=== PATIENT | female | born 1940 | race African-American/Black ===

== ENCOUNTER 2023-09-23 11:53 | Inpatient (IN) | payer MEDICARE, OTHER ==
[~2023-09-23] VITALS: Ht 162.6 cm; Wt 67.1 kg
[2023-09-23] MEDS ORDERED: ASCO-340 PO (12:38)
[2023-09-23] MEDS ORDERED: OXYC5TAB3 PO (12:38)
[2023-09-23] MEDS ORDERED: CLOT15CR5 TP (12:38)
[2023-09-23] MEDS ORDERED: ASPI-1420 PO (12:38)
[2023-09-23] MEDS ORDERED: CALC-494 PO (12:38)
[2023-09-23] MEDS ORDERED: DULO20CA PO (12:38)
[2023-09-23] MEDS ORDERED: ACET-868 PO (12:38)
[2023-09-23] MEDS ORDERED: ATOR80TA PO (12:38)
[2023-09-23] MEDS ORDERED: SODI15OR5 PO (12:38)
[2023-09-23] MEDS ORDERED: CARV12.52 PO (12:38)
[2023-09-23] MEDS ORDERED: LEVO50TA8 PO (12:38)
[2023-09-23] MEDS ORDERED: FOLI1TAB34 PO (12:38)
[2023-09-23] MEDS ORDERED: PANT40TA2 PO (12:38)
[2023-09-23] MEDS ORDERED: DOCU100C36 PO (12:38)
[2023-09-23] MEDS ORDERED: GABA-532 PO (12:38)
[2023-09-23] MEDS ORDERED: ZINC220C6 PO (12:38)
[2023-09-23] MEDS ORDERED: CARB15DR EACHEYE (12:38)
[2023-09-23] MEDS ORDERED: BALS60OI TP (12:38)
[2023-09-23] MEDS ORDERED: CLON0.1T PO (12:38)
[2023-09-23] MEDS ORDERED: ALPR0.255 PO (12:38)
[2023-09-23] MEDS ORDERED: SEVE800T8 PO (12:38)
[2023-09-23] MEDS ORDERED: BIMA2.5D5 EACHEYE (12:38)
[2023-09-23] MEDS ORDERED: BISA10SU11 RC (12:38)
[2023-09-23 12:53] LABS: BASOPHILS % (AUTO) 0.2 % (0.0-2.0); EOSINOPHILS % (AUTO) 0.2 % (0.0-6.0); HEMATOCRIT 40 % (33-45); HEMOGLOBIN 11.4 g/dL (11.5-14.8); LYMPHOCYTES # (AUTO) 0.6 K/uL (0.8-4.8); LYMPHOCYTES % (AUTO) 10.5 % (20.0-44.0); MEAN CORPUSCULAR HEMOGLOBIN 28 PG (26.0-33.0); MEAN CORPUSCULAR HGB CONC 29 g/dl (31.0-36.0); MEAN CORPUSCULAR VOLUME 98 fL (82-100); MONOCYTES # (AUTO) 0.4 K/uL (0.1-1.30); MONOCYTES % (AUTO) 7.3 % (2.0-12.0); NEUTROPHILS # (AUTO) 4.5 K/uL (1.8-8.9); NEUTROPHILS % (AUTO) 81.8 % (43.0-81.0); PLATELET COUNT (AUTO) 106 K/uL (150-450); RED BLOOD CELL COUNT(AUTO) 4.03 MIL/uL (4.0-5.2); RED CELL DISTRIBUTION WIDTH 20.3 % (11.5-15.0); WHITE BLOOD COUNT (AUTO) 5.5 K/uL (4.3-11.0)
[2023-09-23 13:13] LABS: INR 1.17 (0.91-1.10); PARTIAL THROMBOPLASTIN TIME 30.6 SEC (24.3-34.3); PROTHROMBIN TIME 12.3 SECS (9.2-11.1)
[2023-09-23 13:28] LABS: ALANINE AMINOTRANSFERASE 15 U/L (12-78); ALBUMIN 3.6 g/dL (3.4-5.0); ALKALINE PHOSPHATASE 90 U/L (46-116); ASPARTATE AMINOTRANSFERASE 15 U/L (15-37); BILIRUBIN,DIRECT 0.2 mg/dL (0.0-0.2); BILIRUBIN,TOTAL 0.6 mg/dL (0.2-1.0); CARBON DIOXIDE 22 mmol/L (21-32); CHLORIDE 99 mmol/L (98-107); GLUCOSE 121 mg/dL (74-106); POTASSIUM 5.9 mmol/L (3.5-5.1); SODIUM SERUM 130 mmol/L (136-145); TOTAL PROTEIN, SERUM 7.8 g/dL (6.4-8.2); UREA NITROGEN, BLOOD 42 mg/dL (7-18)
[2023-09-23] MEDS ORDERED: LEVOFLOXACIN 750 MG /D5W 150ML PIGGYBACK IV ONE (13:30)
[2023-09-23] MEDS: LEVOFLOXACIN 750 MG /D5W 150ML 750 MG in PREMIX 1 EA IV ONE (13:30)
[2023-09-23 13:33] LABS: CREATININE 9.1 mg/dL (0.6-1.3)
[2023-09-23 13:38] LABS: CALCIUM, SERUM 8.2 mg/dL (8.5-10.1)
[2023-09-23 14:01] LABS: LACTIC ACID 0.6 mmol/L (0.4-2.0)
[2023-09-23] MEDS: VANCOMYCIN 1 GM in IV D5W 250 ML IV ONE (14:50)
[2023-09-23] MEDS ORDERED: ZOLPIDEM TARTRATE 5 MG TABLET PO PRN (16:00)
[2023-09-23] MEDS ORDERED: BISACODYL SUPP (10 MG) 10 MG/SUPP.RECT SUPP.RECT RC PRN (16:00)
[2023-09-23] MEDS ORDERED: ONDANSETRON HCL/PF 4 MG/2 ML VIAL IVP PRN (16:00)
[2023-09-23] MEDS ORDERED: DOCUSATE SODIUM 100 MG CAPSULE PO PRN (16:00)
[2023-09-23] MEDS ORDERED: CALCIUM CARBONATE 500 MG TAB.CHEW PO PRN (16:00)
[2023-09-23] MEDS ORDERED: ACETAMINOPHEN 325 MG TABLET PO PRN (16:00)
[2023-09-23] MEDS ORDERED: MAG HYDROX/AL HYDROX/SIMETH 30 ML UDC PO PRN (16:00)
[2023-09-23] MEDS: SODIUM POLYSTYRENE SULFONATE 15 G/60 ML BOTTLE PO ONE (16:00)
[2023-09-23] MEDS ORDERED: MAGNESIUM HYDROXIDE 30 ML UDC PO PRN (16:00)
[2023-09-23] MEDS ORDERED: VANCOMYCIN POST DIALYSIS 500MG IV PRN (16:30)
[2023-09-23] MEDS: CARVEDILOL 12.5 MG TABLET PO SCH (17:00)
[2023-09-23] MEDS: SEVELAMER CARBONATE 800 MG TABLET PO SCH (17:23)
[2023-09-23 20:00] VITALS: BP 93/60; TEMP 97.2; O2SAT 99
[2023-09-23] MEDS: GABAPENTIN 100 MG CAPSULE PO SCH (21:00)
[2023-09-23] MEDS: ATORVASTATIN 40 MG TABLET PO SCH (22:00)
[2023-09-23] MEDS: DULOXETINE HCL 20 MG CAPSULE.DR PO SCH (22:00)
[2023-09-23] MEDS: LATANOPROST EYE DROP 0.005% 2.5 ML BOTTLE OP SCH (22:37)
[2023-09-24] VITALS (52 sets, daily range): BP systolic 70–180; BP diastolic 14–148; TEMP 96–98.8; O2SAT 93–100
[2023-09-24] MEDS: LEVOTHYROXINE SODIUM 50 MCG TABLET PO SCH (07:30)
[2023-09-24] MEDS: PANTOPRAZOLE 40 MG TABLET.DR PO SCH (07:30)
[2023-09-24] MEDS ORDERED: PANTOPRAZOLE 40 MG TABLET.DR PO SCH (07:30)
[2023-09-24 07:32] LABS: BASOPHILS % (AUTO) 0.1 % (0.0-2.0); EOSINOPHILS % (AUTO) 0.1 % (0.0-6.0); HEMATOCRIT 37 % (33-45); LYMPHOCYTES # (AUTO) 0.4 K/uL (0.8-4.8); LYMPHOCYTES % (AUTO) 6.2 % (20.0-44.0); MEAN CORPUSCULAR HEMOGLOBIN 29 PG (26.0-33.0); MEAN CORPUSCULAR HGB CONC 30 g/dl (31.0-36.0); MEAN CORPUSCULAR VOLUME 95 fL (82-100); MONOCYTES # (AUTO) 0.6 K/uL (0.1-1.30); MONOCYTES % (AUTO) 8.5 % (2.0-12.0); NEUTROPHILS # (AUTO) 5.8 K/uL (1.8-8.9); NEUTROPHILS % (AUTO) 85.1 % (43.0-81.0); PLATELET COUNT (AUTO) 126 K/uL (150-450); RED BLOOD CELL COUNT(AUTO) 3.85 MIL/uL (4.0-5.2); WHITE BLOOD COUNT (AUTO) 6.8 K/uL (4.3-11.0)
[2023-09-24 07:58] LABS: CALCIUM, SERUM 8.2 mg/dL (8.5-10.1); CARBON DIOXIDE 24 mmol/L (21-32); GLUCOSE 104 mg/dL (74-106); MAGNESIUM 2.4 mg/dL (1.8-2.4); PHOSPHORUS 7.7 mg/dL (2.5-4.9); UREA NITROGEN, BLOOD 48 mg/dL (7-18)
[2023-09-24 08:06] LABS: CHOLESTEROL 104 mg/dL (<200); HDL CHOLESTEROL 40 mg/dL (40-60); LDL 52 mg/dL (0-99); THYROID STIMULATING HORMONE 1.512 uIU/mL (0.358-3.74); TRIGLYCERIDES 75 mg/dL (30-150)
[2023-09-24 08:07] LABS: CHLORIDE 98 mmol/L (98-107); SODIUM SERUM 133 mmol/L (136-145)
[2023-09-24] MEDS: ASPIRIN EC 81 MG TABLET.DR PO SCH (08:26)
[2023-09-24] MEDS: MULTIVITAMINS,THERAGRAN 1 UDTAB TABLET PO SCH (08:27)
[2023-09-24] MEDS: SODIUM POLYSTYRENE SULFONATE 15 G/60 ML BOTTLE PO SCH (08:27)
[2023-09-24] MEDS: ASCORBIC ACID 500 MG TABLET PO SCH (08:27)
[2023-09-24] MEDS: ZINC SULFATE 220 MG CAPSULE PO SCH (08:27)
[2023-09-24 08:47] LABS: CREATININE 9.5 mg/dL (0.6-1.3); POTASSIUM 6.5 mmol/L (3.5-5.1)
[2023-09-24] MEDS: HEPARIN SODIUM, PORCINE 5000 UNITS/1 ML VIAL SQ SCH (10:00)
[2023-09-24] MEDS: CLOTRIMAZOLE/BETAMETASONE DIPROPIONATE 15 GM TUBE TP SCH (10:28)
[2023-09-24 11:10] LABS: ABG BASE EXCESS -10.8 mmol/L; ABG PCO2 105.3 mmHg (35.0-45.0); ABG PH 6.958 (7.350-7.450); ABG PO2 85.2 mmHg (75.0-100.0); ABG TOTAL HEMOGLOBIN 12.7 G/dL (12.0-16.0); AaDO2 19.8 mmHg; COHb 1.3 % (0.5-1.5); MetHb 0.3 % (0.0-1.5); O2Hb 91.5 % (94.0-97.0); SITE, ABG Right Radial
[2023-09-24] MEDS: NOREPINEPHRINE 8 MG in IV D5W 242 ML IV PRN (12:48)
[2023-09-24] MEDS: VANCOMYCIN 1 GM in IV D5W 250 ML IV ONE (15:05)
[2023-09-24 17:13] LABS: ABG BASE EXCESS -5.3 mmol/L; ABG OXYGEN SATURATION 98.2 % (92.0-98.5); ABG PCO2 95.2 mmHg (35.0-45.0); ABG PH 7.068 (7.350-7.450); ABG PO2 132.6 mmHg (75.0-100.0); ABG TOTAL HEMOGLOBIN 12.5 G/dL (12.0-16.0); COHb 1.5 % (0.5-1.5); MetHb 0.3 % (0.0-1.5); O2Hb 96.4 % (94.0-97.0); SITE, ABG Right Radial
[2023-09-24] MEDS: PROPOFOL 100 ML IV PRN ×2 (18:03→20:34)
[2023-09-24] MEDS ORDERED: ETOMIDATE 2 MG/ML VIAL IV ONE (18:16)
[2023-09-25] VITALS (51 sets, daily range): BP systolic 96–168; BP diastolic 39–87; TEMP 97.7–102.3; O2SAT 100
[2023-09-25] MEDS: ACETAMINOPHEN 325 MG TABLET PO PRN (00:52)
[2023-09-25 04:20] LABS: BASOPHILS % (AUTO) 0.2 % (0.0-2.0); EOSINOPHILS % (AUTO) 0.2 % (0.0-6.0); HEMATOCRIT 32 % (33-45); HEMOGLOBIN 10.1 g/dL (11.5-14.8); LYMPHOCYTES # (AUTO) 0.8 K/uL (0.8-4.8); MEAN CORPUSCULAR HEMOGLOBIN 29 PG (26.0-33.0); MEAN CORPUSCULAR HGB CONC 32 g/dl (31.0-36.0); MEAN CORPUSCULAR VOLUME 90 fL (82-100); MONOCYTES # (AUTO) 0.9 K/uL (0.1-1.30); MONOCYTES % (AUTO) 13.2 % (2.0-12.0); NEUTROPHILS # (AUTO) 4.7 K/uL (1.8-8.9); NEUTROPHILS % (AUTO) 73.4 % (43.0-81.0); PLATELET COUNT (AUTO) 132 K/uL (150-450); RED BLOOD CELL COUNT(AUTO) 3.51 MIL/uL (4.0-5.2); WHITE BLOOD COUNT (AUTO) 6.4 K/uL (4.3-11.0)
[2023-09-25 04:46] LABS: ABG BASE EXCESS 0.6 mmol/L; ABG OXYGEN SATURATION 96.8 % (92.0-98.5); ABG PCO2 22.3 mmHg (35.0-45.0); ABG PO2 74.9 mmHg (75.0-100.0); ABG TOTAL HEMOGLOBIN 11.7 G/dL (12.0-16.0); AaDO2 184.7 mmHg; COHb 0.9 % (0.5-1.5); MetHb 0.1 % (0.0-1.5); O2Hb 95.8 % (94.0-97.0); SITE, ABG Left Radial
[2023-09-25 04:54] LABS: ALANINE AMINOTRANSFERASE 11 U/L (12-78); ALBUMIN 2.8 g/dL (3.4-5.0); ALKALINE PHOSPHATASE 75 U/L (46-116); ASPARTATE AMINOTRANSFERASE 16 U/L (15-37); BILIRUBIN,TOTAL 0.9 mg/dL (0.2-1.0); CARBON DIOXIDE 21 mmol/L (21-32); CHLORIDE 97 mmol/L (98-107); CREATININE 7.4 mg/dL (0.6-1.3); GLUCOSE 64 mg/dL (74-106); MAGNESIUM 1.9 mg/dL (1.8-2.4); PHOSPHORUS 2.3 mg/dL (2.5-4.9); SODIUM SERUM 133 mmol/L (136-145); TOTAL PROTEIN, SERUM 5.9 g/dL (6.4-8.2); UREA NITROGEN, BLOOD 35 mg/dL (7-18)
[2023-09-25] MEDS: CLONIDINE HCL 0.1 MG TABLET PO PRN (06:03)
[2023-09-25 11:55] LABS: ABG BASE EXCESS -3.3 mmol/L; ABG OXYGEN SATURATION 94.9 % (92.0-98.5); ABG PCO2 36.3 mmHg (35.0-45.0); ABG PH 7.384 (7.350-7.450); ABG PO2 76.5 mmHg (75.0-100.0); ABG TOTAL HEMOGLOBIN 11.7 G/dL (12.0-16.0); AaDO2 94.8 mmHg; COHb 0.8 % (0.5-1.5); MetHb 0.1 % (0.0-1.5); PEEP,BG 5 cm H2O; SITE, ABG Right Radial; VT, ABG 425 mL
[2023-09-25] MEDS ORDERED: LEVOFLOXACIN 500 MG /D5W 100ML 500 MG in PREMIX 1 EA IV SCH (13:00)
[2023-09-25] MEDS: POLYVINYL ALCOHOL 15 ML BOTTLE EACHEYE PRN (14:45)
[2023-09-25] MEDS: Z GUARD REMEDY 4 OZ OINT TP PRN (14:45)
[2023-09-25] MEDS: CEFEPIME 1 GM in IV D5W 50 ML IV SCH (14:45)
[2023-09-25] MEDS: NITROGLYCERIN 30 GM TUBE TP SCH (14:47)
[2023-09-25] MEDS: NEPRO 1,000 ML BOTTLE GT PRN (16:52)
[2023-09-25] MEDS: NEUTRA PHOS 1 POWD.PACKET PO ONE (17:00)
[2023-09-26] VITALS (73 sets, daily range): BP systolic 78–187; BP diastolic 29–121; TEMP 97–98.5; O2SAT 88–100
[2023-09-26 08:38] LABS: BASOPHILS % (AUTO) 0.4 % (0.0-2.0); EOSINOPHILS # (AUTO) 0.1 K/uL (0.0-0.7); EOSINOPHILS % (AUTO) 1.3 % (0.0-6.0); HEMATOCRIT 32 % (33-45); HEMOGLOBIN 10.2 g/dL (11.5-14.8); LYMPHOCYTES # (AUTO) 0.6 K/uL (0.8-4.8); LYMPHOCYTES % (AUTO) 8.5 % (20.0-44.0); MEAN CORPUSCULAR HEMOGLOBIN 29 PG (26.0-33.0); MEAN CORPUSCULAR HGB CONC 32 g/dl (31.0-36.0); MEAN CORPUSCULAR VOLUME 90 fL (82-100); MONOCYTES # (AUTO) 0.8 K/uL (0.1-1.30); MONOCYTES % (AUTO) 10.9 % (2.0-12.0); NEUTROPHILS # (AUTO) 5.9 K/uL (1.8-8.9); NEUTROPHILS % (AUTO) 78.9 % (43.0-81.0); PLATELET COUNT (AUTO) 120 K/uL (150-450); RED BLOOD CELL COUNT(AUTO) 3.56 MIL/uL (4.0-5.2); RED CELL DISTRIBUTION WIDTH 19.4 % (11.5-15.0); WHITE BLOOD COUNT (AUTO) 7.5 K/uL (4.3-11.0)
[2023-09-26 08:52] LABS: ALANINE AMINOTRANSFERASE 11 U/L (12-78); ALBUMIN 2.5 g/dL (3.4-5.0); ALKALINE PHOSPHATASE 74 U/L (46-116); ASPARTATE AMINOTRANSFERASE 17 U/L (15-37); BILIRUBIN,TOTAL 0.7 mg/dL (0.2-1.0); CALCIUM, SERUM 7.9 mg/dL (8.5-10.1); CARBON DIOXIDE 25 mmol/L (21-32); CHLORIDE 96 mmol/L (98-107); CREATININE 5.6 mg/dL (0.6-1.3); GLUCOSE 101 mg/dL (74-106); MAGNESIUM 1.9 mg/dL (1.8-2.4); PHOSPHORUS 4.1 mg/dL (2.5-4.9); POTASSIUM 4.2 mmol/L (3.5-5.1); SODIUM SERUM 133 mmol/L (136-145); TOTAL PROTEIN, SERUM 5.8 g/dL (6.4-8.2); UREA NITROGEN, BLOOD 27 mg/dL (7-18)
[2023-09-26 09:49] LABS: ABG BASE EXCESS -0.8 mmol/L; ABG OXYGEN SATURATION 96.1 % (92.0-98.5); ABG PCO2 31.6 mmHg (35.0-45.0); ABG PH 7.465 (7.350-7.450); ABG PO2 81.2 mmHg (75.0-100.0); ABG TOTAL HEMOGLOBIN 11.9 G/dL (12.0-16.0); AaDO2 95.6 mmHg; COHb 1.1 % (0.5-1.5); MetHb 0.1 % (0.0-1.5); O2Hb 94.9 % (94.0-97.0); PEEP,BG 5 cm H2O; SITE, ABG Left Radial; VENT MODE, BG simv 4; VT, ABG 425 mL
[2023-09-26 11:07] LABS: HEPATITIS B SURFACE AB Non Reactive (.)
[2023-09-27] VITALS (63 sets, daily range): BP systolic 96–169; BP diastolic 37–99; TEMP 97.7–98.4; O2SAT 90–100
[2023-09-27 04:52] LABS: BASOPHILS % (AUTO) 0.4 % (0.0-2.0); EOSINOPHILS # (AUTO) 0.1 K/uL (0.0-0.7); EOSINOPHILS % (AUTO) 1.5 % (0.0-6.0); HEMATOCRIT 32 % (33-45); HEMOGLOBIN 10.2 g/dL (11.5-14.8); LYMPHOCYTES # (AUTO) 0.8 K/uL (0.8-4.8); LYMPHOCYTES % (AUTO) 9.2 % (20.0-44.0); MEAN CORPUSCULAR HEMOGLOBIN 28 PG (26.0-33.0); MEAN CORPUSCULAR HGB CONC 32 g/dl (31.0-36.0); MEAN CORPUSCULAR VOLUME 89 fL (82-100); MONOCYTES # (AUTO) 1.3 K/uL (0.1-1.30); MONOCYTES % (AUTO) 14.9 % (2.0-12.0); NEUTROPHILS # (AUTO) 6.4 K/uL (1.8-8.9); PLATELET COUNT (AUTO) 117 K/uL (150-450); RED CELL DISTRIBUTION WIDTH 19.7 % (11.5-15.0); WHITE BLOOD COUNT (AUTO) 8.7 K/uL (4.3-11.0)
[2023-09-27 05:44] LABS: ALBUMIN 1.5 g/dL (3.4-5.0); BILIRUBIN,TOTAL 0.4 mg/dL (0.2-1.0); CALCIUM, SERUM 8.2 mg/dL (8.5-10.1); CREATININE 0.8 mg/dL (0.6-1.3); MAGNESIUM 1.8 mg/dL (1.8-2.4); PHOSPHORUS 2.8 mg/dL (2.5-4.9); POTASSIUM 3.4 mmol/L (3.5-5.1); TOTAL PROTEIN, SERUM 4.7 g/dL (6.4-8.2)
[2023-09-27] MEDS: VANCOMYCIN 500 MG in IV D5W 100 ML IV PRN (08:03)
[2023-09-27] MEDS ORDERED: POTASSIUM CHLORIDE 20 MEQ TAB.PRT.SR PO SCH (09:00)
[2023-09-27] MEDS: POTASSIUM CHLORIDE 20 MEQ TAB.PRT.SR PO SCH ×2 (12:39→13:00)
[2023-09-28] VITALS (8 sets, daily range): BP systolic 100–123; BP diastolic 53–66; TEMP 97.4–99.1; O2SAT 97–100
[2023-09-28 06:26] LABS: BASOPHILS % (AUTO) 0.2 % (0.0-2.0); EOSINOPHILS # (AUTO) 0.2 K/uL (0.0-0.7); EOSINOPHILS % (AUTO) 3.1 % (0.0-6.0); HEMATOCRIT 30 % (33-45); HEMOGLOBIN 9.5 g/dL (11.5-14.8); LYMPHOCYTES # (AUTO) 0.7 K/uL (0.8-4.8); LYMPHOCYTES % (AUTO) 10.7 % (20.0-44.0); MEAN CORPUSCULAR HEMOGLOBIN 29 PG (26.0-33.0); MEAN CORPUSCULAR HGB CONC 32 g/dl (31.0-36.0); MEAN CORPUSCULAR VOLUME 91 fL (82-100); MONOCYTES # (AUTO) 1.1 K/uL (0.1-1.30); MONOCYTES % (AUTO) 15.9 % (2.0-12.0); NEUTROPHILS # (AUTO) 4.7 K/uL (1.8-8.9); NEUTROPHILS % (AUTO) 70.1 % (43.0-81.0); PLATELET COUNT (AUTO) 102 K/uL (150-450); RED BLOOD CELL COUNT(AUTO) 3.32 MIL/uL (4.0-5.2); RED CELL DISTRIBUTION WIDTH 19.4 % (11.5-15.0); WHITE BLOOD COUNT (AUTO) 6.6 K/uL (4.3-11.0)
[2023-09-28 06:38] LABS: ALANINE AMINOTRANSFERASE 10 U/L (12-78); ALBUMIN 2.4 g/dL (3.4-5.0); ALKALINE PHOSPHATASE 77 U/L (46-116); ASPARTATE AMINOTRANSFERASE 16 U/L (15-37); BILIRUBIN,TOTAL 0.6 mg/dL (0.2-1.0); CALCIUM, SERUM 7.8 mg/dL (8.5-10.1); CARBON DIOXIDE 24 mmol/L (21-32); CHLORIDE 97 mmol/L (98-107); GLUCOSE 106 mg/dL (74-106); PHOSPHORUS 5.8 mg/dL (2.5-4.9); POTASSIUM 4.4 mmol/L (3.5-5.1); SODIUM SERUM 132 mmol/L (136-145); TOTAL PROTEIN, SERUM 5.9 g/dL (6.4-8.2); UREA NITROGEN, BLOOD 36 mg/dL (7-18)
[2023-09-28] MEDS: ALBUMIN 25% 25 GM in PREMIX 1 EA IV PRN (13:12)
[2023-09-29] VITALS: BP 131/64; TEMP 98.6; O2SAT 98
[2023-09-29 04:00] VITALS: BP 128/59; TEMP 97.9; O2SAT 100
[2023-09-29 08:00] VITALS: BP 138/56; TEMP 97.5; O2SAT 96
[2023-09-29 09:21] LABS: BASOPHILS % (AUTO) 0.2 % (0.0-2.0); EOSINOPHILS # (AUTO) 0.2 K/uL (0.0-0.7); EOSINOPHILS % (AUTO) 3.4 % (0.0-6.0); HEMATOCRIT 32 % (33-45); HEMOGLOBIN 9.7 g/dL (11.5-14.8); LYMPHOCYTES # (AUTO) 0.8 K/uL (0.8-4.8); LYMPHOCYTES % (AUTO) 12.8 % (20.0-44.0); MEAN CORPUSCULAR HEMOGLOBIN 29 PG (26.0-33.0); MEAN CORPUSCULAR HGB CONC 31 g/dl (31.0-36.0); MEAN CORPUSCULAR VOLUME 94 fL (82-100); MONOCYTES # (AUTO) 0.8 K/uL (0.1-1.30); MONOCYTES % (AUTO) 13.9 % (2.0-12.0); NEUTROPHILS # (AUTO) 4.1 K/uL (1.8-8.9); NEUTROPHILS % (AUTO) 69.7 % (43.0-81.0); PLATELET COUNT (AUTO) 84 K/uL (150-450); RED BLOOD CELL COUNT(AUTO) 3.39 MIL/uL (4.0-5.2); RED CELL DISTRIBUTION WIDTH 20.1 % (11.5-15.0); WHITE BLOOD COUNT (AUTO) 5.9 K/uL (4.3-11.0)
[2023-09-29 09:42] LABS: ALANINE AMINOTRANSFERASE 16 U/L (12-78); ALBUMIN 2.6 g/dL (3.4-5.0); ALKALINE PHOSPHATASE 69 U/L (46-116); ASPARTATE AMINOTRANSFERASE 22 U/L (15-37); BILIRUBIN,TOTAL 0.6 mg/dL (0.2-1.0); CALCIUM, SERUM 8.2 mg/dL (8.5-10.1); CARBON DIOXIDE 30 mmol/L (21-32); CHLORIDE 92 mmol/L (98-107); CREATININE 4.7 mg/dL (0.6-1.3); GLUCOSE 113 mg/dL (74-106); MAGNESIUM 2.1 mg/dL (1.8-2.4); PHOSPHORUS 4.1 mg/dL (2.5-4.9); POTASSIUM 4.1 mmol/L (3.5-5.1); SODIUM SERUM 130 mmol/L (136-145); TOTAL PROTEIN, SERUM 6.2 g/dL (6.4-8.2); UREA NITROGEN, BLOOD 26 mg/dL (7-18)
[2023-09-29 12:00] VITALS: BP 94/56; TEMP 98.2; O2SAT 99
[2023-09-29 12:57] LABS: BASOPHILS % (MANUAL) 0 % (0.0-2.0); EOSINOPHILS % (MANUAL) 3 % (0-4); LYMPHOCYTES % (MANUAL) 11 % (16-48); MONOCYTES % (MANUAL) 15 % (0-11.0); NEUTROPHILS % (MANUAL) 71 (42-76); PLATELET ESTIMATE DECREASED
[2023-09-29 12:58] LABS: ANISOCYTOSIS 1+; HYPOCHROMASIA 1+; OVALOCYTES 1+
[2023-09-29 16:00] VITALS: BP 117/55; TEMP 98.2; O2SAT 99
[2023-09-29 16:34] VITALS: BP 117/55
[2023-10-01] MEDS ORDERED: MUPIROCIN OINT 2% 22 GM TUBE NS SCH (21:00)
== END 2023-09-29 18:23 | DRG 917 ==
LOC: ER 11:55 → TELE-TD 14:09 → TELE1 16:26 → ICU 09-24 11:29 → TELE1 09-27 17:28 → MEDSG1 09-29 13:12
PROVIDERS: ADMIT Student in an Organized Health Care Education/Training Program
PROC: 5A1945Z Respiratory Ventilation, 24-96 Consecutive Hours (ICD-10-PCS; principal; 2023-09-24)
PROC: 5A09357 Assistance with Respiratory Ventilation, Less than 24 Consecutive Hours, Continuous Positive Airway Pressure (ICD-10-PCS; 2023-09-24)
PROC: 5A1D70Z Performance of Urinary Filtration, Intermittent, Less than 6 Hours Per Day (ICD-10-PCS; 2023-09-24)
PROC: 05H933Z Insertion of Infusion Device into Right Brachial Vein, Percutaneous Approach (ICD-10-PCS; 2023-09-24)
PROC: 0BH17EZ Insertion of Endotracheal Airway into Trachea, Via Natural or Artificial Opening (ICD-10-PCS; 2023-09-24)
DX: T50.901A Poisoning by unspecified drugs, medicaments and biological substances, accidental (unintentional), initial encounter (principal); A41.9 Sepsis, unspecified organism; G92.8 Other toxic encephalopathy; J15.69 Pneumonia due to other Gram-negative bacteria; I21.A1 Myocardial infarction type 2; J96.01 Acute respiratory failure with hypoxia; J69.0 Pneumonitis due to inhalation of food and vomit; N18.6 End stage renal disease; J96.02 Acute respiratory failure with hypercapnia; I13.2 Hypertensive heart and chronic kidney disease with heart failure and with stage 5 chronic kidney disease, or end stage renal disease; J44.0 Chronic obstructive pulmonary disease with (acute) lower respiratory infection; E87.1 Hypo-osmolality and hyponatremia; Y92.129 Unspecified place in nursing home as the place of occurrence of the external cause; I25.10 Atherosclerotic heart disease of native coronary artery without angina pectoris; J44.9 Chronic obstructive pulmonary disease, unspecified; I50.9 Heart failure, unspecified; L89.156 Pressure-induced deep tissue damage of sacral region; Z79.890 Hormone replacement therapy; Z79.82 Long term (current) use of aspirin; Z79.899 Other long term (current) drug therapy; K21.9 Gastro-esophageal reflux disease without esophagitis; Y95 Nosocomial condition; Z99.2 Dependence on renal dialysis; E03.9 Hypothyroidism, unspecified; D63.1 Anemia in chronic kidney disease; N25.0 Renal osteodystrophy; Z22.322 Carrier or suspected carrier of Methicillin resistant Staphylococcus aureus; E78.5 Hyperlipidemia, unspecified; D69.6 Thrombocytopenia, unspecified; E87.5 Hyperkalemia; E87.6 Hypokalemia; G89.4 Chronic pain syndrome; Z88.0 Allergy status to penicillin
CPT/HCPCS: 31720; 36410; 36415; 36600; 71045-TC; 71250-TC; 80048-TC; 80053-TC; 80061-TC; 80076-TC; 80202-TC; 82803-TC; 82962-TC; 83605-TC; 83735-TC; 84100-TC; 84443-TC; 84478-TC; 84484-TC; 85025-TC; 85730-TC; 86706; 87040-TC; 87081-TC; 87340; 90935-TC; 93307-TC; 94003-TC; 94761-TC; 94799-TC; 97112-TC; 97530-TC; A4216; A4223; G0378; J0330; J0692; J1644; J1956; J3370; J3490; J7030; J7042; J7050; J7060; P9047

== ENCOUNTER 2024-01-28 15:20 | Inpatient (IN) | payer MEDICARE, OTHER ==
[~2024-01-28] VITALS: Ht 165.1 cm; Wt 62.6 kg
[~2024-01-28 15:20] MED LIST: ACET-868 PO; ALPR0.255 PO; ASCO-340 PO; ASPI-1420 PO; ATOR80TA PO; BALS60OI TP; BIMA2.5D5 EACHEYE; BISA10SU11 RC; CALC-494 PO; CARB15DR EACHEYE; CARV12.52 PO; CLON0.1T PO; CLOT15CR5 TP; DOCU100C36 PO; DULO20CA PO; FOLI1TAB34 PO; GABA-532 PO; LEVO50TA8 PO; OXYC5TAB3 PO; PANT40TA2 PO; SEVE800T8 PO; SODI15OR5 PO; ZINC220C6 PO
[2024-01-28 15:52] LABS: BASOPHILS % (AUTO) 0.8 % (0.0-2.0); EOSINOPHILS # (AUTO) 0.2 K/uL (0.0-0.7); EOSINOPHILS % (AUTO) 4.9 % (0.0-6.0); HEMATOCRIT 34 % (33-45); HEMOGLOBIN 10.4 g/dL (11.5-14.8); LYMPHOCYTES # (AUTO) 0.7 K/uL (0.8-4.8); LYMPHOCYTES % (AUTO) 19.8 % (20.0-44.0); MEAN CORPUSCULAR HEMOGLOBIN 29 PG (26.0-33.0); MEAN CORPUSCULAR HGB CONC 31 g/dl (31.0-36.0); MEAN CORPUSCULAR VOLUME 95 fL (82-100); MONOCYTES # (AUTO) 0.5 K/uL (0.1-1.30); MONOCYTES % (AUTO) 12.3 % (2.0-12.0); NEUTROPHILS # (AUTO) 2.3 K/uL (1.8-8.9); NEUTROPHILS % (AUTO) 62.2 % (43.0-81.0); PLATELET COUNT (AUTO) 78 K/uL (150-450); RED BLOOD CELL COUNT(AUTO) 3.54 MIL/uL (4.0-5.2); RED CELL DISTRIBUTION WIDTH 19.6 % (11.5-15.0); WHITE BLOOD COUNT (AUTO) 3.7 K/uL (4.3-11.0)
[2024-01-28 16:00] LABS: CALCIUM, SERUM 8.5 mg/dL (8.5-10.1); CARBON DIOXIDE 23 mmol/L (21-32); CHLORIDE 103 mmol/L (98-107); CREATININE 6.4 mg/dL (0.6-1.3); GLUCOSE 93 mg/dL (74-106); POTASSIUM 5.1 mmol/L (3.5-5.1); SODIUM SERUM 133 mmol/L (136-145); UREA NITROGEN, BLOOD 48 mg/dL (7-18)
[2024-01-28] MEDS ORDERED: Magnesium 1GM/D5W 100ML PREMIX 100 ML IV ONE (16:08)
[2024-01-28] MEDS ORDERED: methylPREDNISolone SOD SUCC 125 MG/2ML VIAL ONE (16:08)
[2024-01-28 16:12] LABS: ALANINE AMINOTRANSFERASE 20 U/L (12-78); ALBUMIN 3.3 g/dL (3.4-5.0); ALKALINE PHOSPHATASE 84 U/L (46-116); ASPARTATE AMINOTRANSFERASE 14 U/L (15-37); BILIRUBIN,DIRECT 0.2 mg/dL (0.0-0.2); BILIRUBIN,TOTAL 0.5 mg/dL (0.2-1.0); NT-PRO BNP 19436 pg/mL (0-125)
[2024-01-28] MEDS ORDERED: ALBUTEROL FS 2.5 MG/3 ML VIAL.NEB ONE (16:13)
[2024-01-28] MEDS ORDERED: IPRATROPIUM NEB FS 0.5 MG/2.5 ML AMPUL.NEB ONE (16:13)
[2024-01-28] MEDS: Magnesium 1GM/D5W 100ML PREMIX 200 ML IV ONE (16:15)
[2024-01-28] MEDS: methylPREDNISolone SOD SUCC 125 MG/2ML VIAL IV ONE (16:15)
[2024-01-28 16:26] LABS: EOSINOPHILS % (MANUAL) 9 % (0-4); LYMPHOCYTES % (MANUAL) 20 % (16-48); MONOCYTES % (MANUAL) 11 % (0-11.0); NEUTROPHILS % (MANUAL) 60 (42-76)
[2024-01-28] MEDS: IPRATROPIUM NEB FS 0.5 MG/2.5 ML AMPUL.NEB NEB ONE (16:26)
[2024-01-28] MEDS: ALBUTEROL FS 2.5 MG/3 ML VIAL.NEB CONTNEB ONE (16:26)
[2024-01-28 16:27] LABS: ANISOCYTOSIS 1+; PLATELET ESTIMATE DECREASED
[2024-01-28] MEDS ORDERED: DICL100G34 TP (17:09)
[2024-01-28] MEDS ORDERED: AMIN30LI25 PO (17:09)
[2024-01-28] MEDS ORDERED: POLY17PO4 PO (17:09)
[2024-01-28] MEDS ORDERED: ZINC56.713 TP (17:09)
[2024-01-28] MEDS ORDERED: BUPR150F3 BC (17:09)
[2024-01-28] MEDS ORDERED: TRAM50TA PO (17:09)
[2024-01-28] MEDS ORDERED: NITR1PAT67 TD (17:09)
[2024-01-28] MEDS ORDERED: LATA2.5D15 EACHEYE (17:09)
[2024-01-28] MEDS ORDERED: APIX5TAB PO (17:09)
[2024-01-28] MEDS: FUROSEMIDE 40 MG/4 ML VIAL IV ONE (18:02)
[2024-01-28] MEDS ORDERED: FUROSEMIDE 40 MG/4 ML VIAL ONE (18:04)
[2024-01-28] MEDS ORDERED: Z GUARD REMEDY 4 OZ OINT TP PRN (19:00)
[2024-01-28] MEDS ORDERED: BISACODYL SUPP (10 MG) 10 MG/SUPP.RECT SUPP.RECT RC PRN (19:00)
[2024-01-28] MEDS ORDERED: ONDANSETRON HCL/PF 4 MG/2 ML VIAL IVP PRN (19:00)
[2024-01-28 19:55] VITALS: BP 113/54; O2SAT 96
[2024-01-28 20:00] VITALS: BP 148/60; TEMP 97.9; O2SAT 97; O2SAT 99
[2024-01-28] MEDS: IPRATROPIUM NEB FS 0.5 MG/2.5 ML AMPUL.NEB NEB SCH (20:14)
[2024-01-28] MEDS: ALBUTEROL FS 2.5 MG/0.5 ML VIAL.NEB NEB SCH (20:14)
[2024-01-28 21:00] VITALS: BP 123/84; O2SAT 98
[2024-01-28] MEDS: CEFTRIAXONE 1 G in IV D5W 50 ML IV SCH (21:29)
[2024-01-28] MEDS: LATANOPROST EYE DROP 0.005% 2.5 ML BOTTLE EACHEYE SCH (21:32)
[2024-01-28] MEDS: CALCIUM CARBONATE 500 MG TAB.CHEW PO SCH (21:32)
[2024-01-28] MEDS: GABAPENTIN 100 MG CAPSULE PO SCH (21:32)
[2024-01-28] MEDS: methylPREDNISolone SOD SUCC 40 MG/ML VIAL IV SCH (21:32)
[2024-01-28] MEDS: ATORVASTATIN 40 MG TABLET PO SCH (21:32)
[2024-01-28 22:00] VITALS: BP 139/38; O2SAT 99
[2024-01-28 23:00] VITALS: BP 144/105; O2SAT 99
[2024-01-29] VITALS (42 sets, daily range): BP systolic 104–177; BP diastolic 39–110; TEMP 97.6–98.3; O2SAT 87–100
[2024-01-29] MEDS: IV NS 0.9% 250 ML IV PRN (02:44)
[2024-01-29 05:11] LABS: BASOPHILS % (AUTO) 0.3 % (0.0-2.0); EOSINOPHILS % (AUTO) 0.1 % (0.0-6.0); HEMATOCRIT 35 % (33-45); HEMOGLOBIN 11.4 g/dL (11.5-14.8); LYMPHOCYTES # (AUTO) 0.3 K/uL (0.8-4.8); LYMPHOCYTES % (AUTO) 10.8 % (20.0-44.0); MEAN CORPUSCULAR HEMOGLOBIN 31 PG (26.0-33.0); MEAN CORPUSCULAR HGB CONC 33 g/dl (31.0-36.0); MEAN CORPUSCULAR VOLUME 94 fL (82-100); MONOCYTES # (AUTO) 0.1 K/uL (0.1-1.30); MONOCYTES % (AUTO) 1.8 % (2.0-12.0); NEUTROPHILS # (AUTO) 2.5 K/uL (1.8-8.9); PLATELET COUNT (AUTO) 86 K/uL (150-450); RED BLOOD CELL COUNT(AUTO) 3.73 MIL/uL (4.0-5.2); RED CELL DISTRIBUTION WIDTH 19.1 % (11.5-15.0); WHITE BLOOD COUNT (AUTO) 2.8 K/uL (4.3-11.0)
[2024-01-29 05:12] LABS: CALCIUM, SERUM 8.1 mg/dL (8.5-10.1); CARBON DIOXIDE 31 mmol/L (21-32); CHLORIDE 96 mmol/L (98-107); GLUCOSE 90 mg/dL (74-106); MAGNESIUM 2.1 mg/dL (1.8-2.4); PHOSPHORUS 5.3 mg/dL (2.5-4.9); POTASSIUM 4.6 mmol/L (3.5-5.1); SODIUM SERUM 133 mmol/L (136-145); UREA NITROGEN, BLOOD 27 mg/dL (7-18)
[2024-01-29 05:17] LABS: CHOLESTEROL 147 mg/dL (<200); HDL CHOLESTEROL 43 mg/dL (40-60); LDL 89 mg/dL (0-99); TRIGLYCERIDES 70 mg/dL (30-150)
[2024-01-29 05:30] LABS: ABG BASE EXCESS -10.8 mmol/L (-2.0-2.0); ABG OXYGEN SATURATION 93.4 % (92.0-98.5); ABG PCO2 53.4 mmHg (35.0-45.0); ABG PH 7.148 (7.350-7.450); ABG PO2 82.8 mmHg (75.0-100.0); ABG TOTAL HEMOGLOBIN 12.5 G/dL (12.0-16.0); AaDO2 68.4 mmHg; COHb 1.9 % (0.5-1.5); MetHb 0.3 % (0.0-1.5); O2Hb 91.3 % (94.0-97.0); SITE, ABG Right Radial; VENT MODE, BG ST 18/6 20 30%
[2024-01-29 06:33] LABS: ANISOCYTOSIS 1+; BASOPHILS % (MANUAL) 0 % (0.0-2.0); EOSINOPHILS % (MANUAL) 1 % (0-4); LYMPHOCYTES % (MANUAL) 14 % (16-48); MONOCYTES % (MANUAL) 3 % (0-11.0); NEUTROPHILS % (MANUAL) 82 (42-76); OVALOCYTES 1+; PLATELET ESTIMATE DECREASED
[2024-01-29] MEDS: CARVEDILOL 12.5 MG TABLET PO SCH (08:32)
[2024-01-29] MEDS: SEVELAMER CARBONATE 800 MG TABLET PO SCH (08:33)
[2024-01-29] MEDS: LEVOTHYROXINE SODIUM 50 MCG TABLET PO SCH (08:33)
[2024-01-29] MEDS: PANTOPRAZOLE 40 MG TABLET.DR PO SCH (08:33)
[2024-01-29] MEDS: APIXABAN 2.5 MG TABLET PO SCH (08:34)
[2024-01-29] MEDS: ZINC OXIDE 56.7 GM TUBE TP SCH (08:36)
[2024-01-29 16:21] LABS: ABG BASE EXCESS -0.6 mmol/L (-2.0-2.0); ABG OXYGEN SATURATION 98.4 % (92.0-98.5); ABG PCO2 38.9 mmHg (35.0-45.0); ABG PH 7.407 (7.350-7.450); ABG PO2 107.9 mmHg (75.0-100.0); ABG TOTAL HEMOGLOBIN 12.9 G/dL (12.0-16.0); AaDO2 45.8 mmHg; COHb 2.2 % (0.5-1.5); MetHb 0.3 % (0.0-1.5); O2Hb 95.9 % (94.0-97.0); SITE, ABG Right Radial; VENT MODE, BG NASAL CANNULA
[2024-01-29] MEDS: BUPRENORPHINE HCL 8 MG TAB.SUBL SL SCH (16:28)
[2024-01-29] MEDS: TRAMADOL HCL 50 MG TABLET PO PRN (21:00)
[2024-01-30] VITALS (29 sets, daily range): BP systolic 101–163; BP diastolic 40–89; TEMP 97.4–98.6; O2SAT 91–100
[2024-01-30] MEDS: IPRATROPIUM NEB FS 0.5 MG/2.5 ML AMPUL.NEB ONE (02:25)
[2024-01-30] MEDS: ALBUTEROL FS 2.5 MG/0.5 ML VIAL.NEB ONE (02:25)
[2024-01-30 09:08] LABS: HEPATITIS B SURFACE AB Non Reactive (.)
[2024-01-30] MEDS ORDERED: NEPRO VAN 237 ML CAN PO PRN (10:30)
[2024-01-31] VITALS (15 sets, daily range): BP systolic 131–181; BP diastolic 63–96; TEMP 97.3–98.8; O2SAT 97–100
[2024-01-31] MEDS: hydrALAZINE HCL IV 20 MG VIAL IV ONE (01:18)
[2024-01-31] MEDS: ACETAMINOPHEN 325 MG TABLET PO PRN (04:47)
[2024-01-31 06:49] LABS: BASOPHILS % (AUTO) 0.1 % (0.0-2.0); EOSINOPHILS % (AUTO) 0.2 % (0.0-6.0); HEMATOCRIT 42 % (33-45); HEMOGLOBIN 13.3 g/dL (11.5-14.8); LYMPHOCYTES # (AUTO) 0.2 K/uL (0.8-4.8); LYMPHOCYTES % (AUTO) 3.9 % (20.0-44.0); MEAN CORPUSCULAR HEMOGLOBIN 30 PG (26.0-33.0); MEAN CORPUSCULAR HGB CONC 32 g/dl (31.0-36.0); MEAN CORPUSCULAR VOLUME 95 fL (82-100); MONOCYTES # (AUTO) 0.4 K/uL (0.1-1.30); MONOCYTES % (AUTO) 7.1 % (2.0-12.0); NEUTROPHILS # (AUTO) 5.6 K/uL (1.8-8.9); NEUTROPHILS % (AUTO) 88.7 % (43.0-81.0); PLATELET COUNT (AUTO) 106 K/uL (150-450); RED CELL DISTRIBUTION WIDTH 18.7 % (11.5-15.0); WHITE BLOOD COUNT (AUTO) 6.3 K/uL (4.3-11.0)
[2024-01-31 07:06] LABS: CALCIUM, SERUM 8.4 mg/dL (8.5-10.1); CARBON DIOXIDE 29 mmol/L (21-32); CHLORIDE 93 mmol/L (98-107); CREATININE 3.9 mg/dL (0.6-1.3); GLUCOSE 111 mg/dL (74-106); MAGNESIUM 2.5 mg/dL (1.8-2.4); PHOSPHORUS 5.9 mg/dL (2.5-4.9); SODIUM SERUM 132 mmol/L (136-145); UREA NITROGEN, BLOOD 32 mg/dL (7-18)
[2024-01-31 07:15] LABS: POTASSIUM 6.7 mmol/L (3.5-5.1)
[2024-01-31] MEDS: SODIUM POLYSTYRENE SULFONATE 15 G/60 ML BOTTLE PO ONE (08:14)
[2024-01-31] MEDS: hydrALAZINE HCL 25 MG TABLET PO PRN (18:10)
[2024-01-31] MEDS: MUPIROCIN OINT 2% 22 GM TUBE NS SCH (21:25)
[2024-02-01] VITALS (18 sets, daily range): BP systolic 123–195; BP diastolic 76–102; TEMP 97.5–98.7; O2SAT 95–100
[2024-02-01 07:52] LABS: BASOPHILS % (AUTO) 0.1 % (0.0-2.0); HEMATOCRIT 41 % (33-45); HEMOGLOBIN 12.4 g/dL (11.5-14.8); LYMPHOCYTES # (AUTO) 0.6 K/uL (0.8-4.8); LYMPHOCYTES % (AUTO) 8.5 % (20.0-44.0); MEAN CORPUSCULAR HEMOGLOBIN 29 PG (26.0-33.0); MEAN CORPUSCULAR HGB CONC 30 g/dl (31.0-36.0); MEAN CORPUSCULAR VOLUME 96 fL (82-100); MONOCYTES # (AUTO) 0.9 K/uL (0.1-1.30); MONOCYTES % (AUTO) 13.5 % (2.0-12.0); NEUTROPHILS # (AUTO) 5.1 K/uL (1.8-8.9); NEUTROPHILS % (AUTO) 77.9 % (43.0-81.0); PLATELET COUNT (AUTO) 117 K/uL (150-450); RED BLOOD CELL COUNT(AUTO) 4.27 MIL/uL (4.0-5.2); RED CELL DISTRIBUTION WIDTH 18.7 % (11.5-15.0); WHITE BLOOD COUNT (AUTO) 6.6 K/uL (4.3-11.0)
[2024-02-01 08:34] LABS: CALCIUM, SERUM 8.2 mg/dL (8.5-10.1); CARBON DIOXIDE 29 mmol/L (21-32); CHLORIDE 91 mmol/L (98-107); CREATININE 3.9 mg/dL (0.6-1.3); GLUCOSE 107 mg/dL (74-106); MAGNESIUM 2.4 mg/dL (1.8-2.4); PHOSPHORUS 6.1 mg/dL (2.5-4.9); POTASSIUM 3.8 mmol/L (3.5-5.1); SODIUM SERUM 131 mmol/L (136-145); UREA NITROGEN, BLOOD 27 mg/dL (7-18)
[2024-02-01] MEDS: methylPREDNISolone SOD SUCC 40 MG/ML VIAL IV SCH (08:52)
[2024-02-01] MEDS ORDERED: hydrALAZINE HCL 50 MG TABLET PO PRN (13:00)
[2024-02-01] MEDS ORDERED: NIFEdipine XL (30MG) 30 MG TAB PO SCH (15:00)
[2024-02-01] MEDS: NIFEdipine (10MG) 10 MG CAPSULE PO ONE (15:56)
[2024-02-01] MEDS: NIFEdipine XL (30MG) 30 MG TAB PO ONE (16:06)
[2024-02-01] MEDS: NIFEdipine XL (30MG) 30 MG TAB PO SCH (16:10)
[2024-02-02] VITALS (13 sets, daily range): BP systolic 129–150; BP diastolic 66–83; TEMP 97.3–98.6; O2SAT 97–100
[2024-02-02 08:08] LABS: BASOPHILS % (AUTO) 0.1 % (0.0-2.0); EOSINOPHILS % (AUTO) 0.2 % (0.0-6.0); HEMATOCRIT 39 % (33-45); HEMOGLOBIN 12.4 g/dL (11.5-14.8); LYMPHOCYTES # (AUTO) 0.6 K/uL (0.8-4.8); MEAN CORPUSCULAR HEMOGLOBIN 30 PG (26.0-33.0); MEAN CORPUSCULAR HGB CONC 32 g/dl (31.0-36.0); MEAN CORPUSCULAR VOLUME 95 fL (82-100); MONOCYTES # (AUTO) 0.9 K/uL (0.1-1.30); MONOCYTES % (AUTO) 13.4 % (2.0-12.0); NEUTROPHILS # (AUTO) 5.2 K/uL (1.8-8.9); NEUTROPHILS % (AUTO) 77.3 % (43.0-81.0); PLATELET COUNT (AUTO) 123 K/uL (150-450); RED BLOOD CELL COUNT(AUTO) 4.14 MIL/uL (4.0-5.2); RED CELL DISTRIBUTION WIDTH 18.4 % (11.5-15.0); WHITE BLOOD COUNT (AUTO) 6.7 K/uL (4.3-11.0)
[2024-02-02 09:01] LABS: CALCIUM, SERUM 8.2 mg/dL (8.5-10.1); CARBON DIOXIDE 28 mmol/L (21-32); CHLORIDE 91 mmol/L (98-107); GLUCOSE 90 mg/dL (74-106); MAGNESIUM 2.3 mg/dL (1.8-2.4); PHOSPHORUS 6.4 mg/dL (2.5-4.9); POTASSIUM 4.2 mmol/L (3.5-5.1); SODIUM SERUM 130 mmol/L (136-145); UREA NITROGEN, BLOOD 40 mg/dL (7-18)
[2024-02-02] MEDS: predniSONE 20 MG TABLET PO SCH (09:11)
[2024-02-02] MEDS ORDERED: ALBU2.5V13 NEB (14:48)
[2024-02-02] MEDS ORDERED: PRED20TA PO (14:48)
== END 2024-02-02 21:30 | DRG 280 ==
LOC: ER 15:23 → MED 17:44 → SAOV 18:18 → ICU 19:06 → TELE-TD 01-30 17:19 → TELE1 01-31 07:54
PROVIDERS: ADMIT Nurse Practitioner Acute Care; ATTEND Nurse Practitioner Acute Care
PROC: 05HC33Z Insertion of Infusion Device into Left Basilic Vein, Percutaneous Approach (ICD-10-PCS; principal; 2024-01-28)
PROC: 5A09457 Assistance with Respiratory Ventilation, 24-96 Consecutive Hours, Continuous Positive Airway Pressure (ICD-10-PCS; 2024-01-28)
PROC: 5A1D70Z Performance of Urinary Filtration, Intermittent, Less than 6 Hours Per Day (ICD-10-PCS; 2024-01-28)
DX: I13.2 Hypertensive heart and chronic kidney disease with heart failure and with stage 5 chronic kidney disease, or end stage renal disease (principal); I50.31 Acute diastolic (congestive) heart failure; I21.A1 Myocardial infarction type 2; J96.02 Acute respiratory failure with hypercapnia; N18.6 End stage renal disease; J96.01 Acute respiratory failure with hypoxia; J44.1 Chronic obstructive pulmonary disease with (acute) exacerbation; E87.1 Hypo-osmolality and hyponatremia; E87.29 Other acidosis; I16.0 Hypertensive urgency; Z99.2 Dependence on renal dialysis; Z20.822 Contact with and (suspected) exposure to COVID-19; I25.10 Atherosclerotic heart disease of native coronary artery without angina pectoris; K21.9 Gastro-esophageal reflux disease without esophagitis; Z88.0 Allergy status to penicillin; Z79.890 Hormone replacement therapy; Z79.899 Other long term (current) drug therapy; Z79.82 Long term (current) use of aspirin; M89.8X9 Other specified disorders of bone, unspecified site; Z86.711 Personal history of pulmonary embolism; Z86.718 Personal history of other venous thrombosis and embolism; Z87.891 Personal history of nicotine dependence; M21.611 Bunion of right foot; M20.11 Hallux valgus (acquired), right foot; L60.3 Nail dystrophy; L60.0 Ingrowing nail; M20.12 Hallux valgus (acquired), left foot; I34.0 Nonrheumatic mitral (valve) insufficiency; G89.4 Chronic pain syndrome; D64.9 Anemia, unspecified; D69.6 Thrombocytopenia, unspecified; D70.9 Neutropenia, unspecified; E87.5 Hyperkalemia
CPT/HCPCS: 36415; 36600; 71045-TC; 80048-TC; 80061-TC; 80076-TC; 82803-TC; 83735-TC; 83880; 84100-TC; 84484-TC; 85025-TC; 86706; 87081-TC; 87340; 90935-TC; 93307-TC; 94660; 94799-TC; 97110-TC; 97112-TC; 97530-TC; A4223; A6403; G0378; J0360; J0696; J1940; J2405; J2919; J3475; J7030; J7050; J7060

== ENCOUNTER 2024-05-03 13:10 | Emergency (ER) | payer MEDICARE, OTHER ==
[~2024-05-03] VITALS: Ht 160 cm; Wt 54.4 kg
[~2024-05-03 13:10] MED LIST changes: +ALBU2.5V13 NEB; -ALPR0.255 PO; +AMIN30LI25 PO; +APIX5TAB PO; -ASCO-340 PO; -ASPI-1420 PO; -BALS60OI TP; -BIMA2.5D5 EACHEYE; +BUPR150F3 BC; -CLON0.1T PO; -CLOT15CR5 TP; +DICL100G34 TP; -DULO20CA PO; +LATA2.5D15 EACHEYE; +NITR1PAT67 TD; -OXYC5TAB3 PO; +POLY17PO4 PO; +PRED20TA PO; -SODI15OR5 PO; +TRAM50TA PO; -ZINC220C6 PO; +ZINC56.713 TP
[2024-05-03 14:15] VITALS: BP 171/100; TEMP 98.3; O2SAT 98
[2024-05-03] MEDS ORDERED: SUMATRIPTAN SUCCINATE 6 MG/0.5 ML VIAL SQ ONE (14:28)
[2024-05-03] MEDS ORDERED: ACETAMINOPHEN ES 500 MG TABLET ONE (14:29)
[2024-05-03] MEDS ORDERED: METOCLOPRAMIDE HCL 10 MG/2 ML VIAL ONE (14:29)
[2024-05-03] MEDS: ACETAMINOPHEN ES 500 MG TABLET PO ONE (14:54)
[2024-05-03] MEDS: METOCLOPRAMIDE HCL 10 MG/2 ML VIAL IV ONE (14:54)
[2024-05-03] MEDS: SUMATRIPTAN SUCCINATE 6 MG/0.5 ML VIAL SQ ONE (14:54)
== END 2024-05-03 18:20 ==
LOC: ER 13:20
DX: R51.9 Headache, unspecified (principal); I12.0 Hypertensive chronic kidney disease with stage 5 chronic kidney disease or end stage renal disease; J44.9 Chronic obstructive pulmonary disease, unspecified; K21.9 Gastro-esophageal reflux disease without esophagitis; N18.6 End stage renal disease; Z88.0 Allergy status to penicillin
CPT/HCPCS: 99285; 96374; 70450; 96372; J3030; J2765

== ENCOUNTER 2024-09-29 08:39 | Inpatient (IN) | payer MEDICARE, OTHER ==
[~2024-09-29] VITALS: Ht 160 cm; Wt 56.2 kg
[~2024-09-29 08:39] MED LIST changes: +NEO/5DRO7 LEFTEYE
[2024-09-29] MEDS ORDERED: IOHEXOL-350 100 ML VIAL IV ONE (08:54)
[2024-09-29] MEDS ORDERED: IV NS 0.9% 250 ML IV ONE (08:56)
[2024-09-29 09:05] LABS: BASOPHILS % (AUTO) 0.2 % (0.0-2.0); EOSINOPHILS # (AUTO) 0.2 K/uL (0.0-0.7); EOSINOPHILS % (AUTO) 2.2 % (0.0-6.0); HEMATOCRIT 36 % (33-45); HEMOGLOBIN 10.8 g/dL (11.5-14.8); LYMPHOCYTES # (AUTO) 0.5 K/uL (0.8-4.8); LYMPHOCYTES % (AUTO) 6.8 % (20.0-44.0); MEAN CORPUSCULAR HEMOGLOBIN 28 PG (26.0-33.0); MEAN CORPUSCULAR HGB CONC 30 g/dl (31.0-36.0); MEAN CORPUSCULAR VOLUME 92 fL (82-100); MONOCYTES # (AUTO) 0.7 K/uL (0.1-1.30); MONOCYTES % (AUTO) 8.9 % (2.0-12.0); NEUTROPHILS # (AUTO) 6.4 K/uL (1.8-8.9); NEUTROPHILS % (AUTO) 81.9 % (43.0-81.0); PLATELET COUNT (AUTO) 124 K/uL (150-450); RED CELL DISTRIBUTION WIDTH 20.8 % (11.5-15.0); WHITE BLOOD COUNT (AUTO) 7.8 K/uL (4.3-11.0)
[2024-09-29 09:16] LABS: CALCIUM, SERUM 8.8 mg/dL (8.5-10.1); CARBON DIOXIDE 25 mmol/L (21-32); CHLORIDE 103 mmol/L (98-107); CREATININE 5.9 mg/dL (0.6-1.3); GLUCOSE 105 mg/dL (74-106); POTASSIUM 5.2 mmol/L (3.5-5.1); SODIUM SERUM 140 mmol/L (136-145); UREA NITROGEN, BLOOD 30 mg/dL (7-18)
[2024-09-29 09:18] LABS: INR 1.15 (0.91-1.10); PARTIAL THROMBOPLASTIN TIME 38.4 SEC (24.3-34.3); PROTHROMBIN TIME 12.1 SECS (9.2-11.1)
[2024-09-29] MEDS ORDERED: POLY15DR31 EACHEYE (10:05)
[2024-09-29] MEDS ORDERED: NA P133E RC (10:05)
[2024-09-29] MEDS ORDERED: SEVE0.8P3 PO (10:05)
[2024-09-29] MEDS ORDERED: ASPIRIN EC 325 MG TABLET.DR PO ONE (10:23)
[2024-09-29] MEDS: ASPIRIN EC 325 MG TABLET.DR PO ONE (10:30)
[2024-09-29] MEDS ORDERED: DOCUSATE SODIUM 100 MG CAPSULE PO PRN (11:30)
[2024-09-29] MEDS ORDERED: BISACODYL SUPP (10 MG) 10 MG/SUPP.RECT SUPP.RECT RC PRN (11:30)
[2024-09-29 11:34] LABS: APPEARANCE,URINE TURBID (CLEAR); COLOR,URINE DARK YELLOW (YELLOW)
[2024-09-29 11:35] LABS: BILIRUBIN,URINE NEGATIVE (NEGATIVE); KETONES,URINE NEGATIVE (NEGATIVE); LEUKOCYTE ESTERASE ,URINE 2+ (NEGATIVE); NITRITE, URINE POSITIVE (NEGATIVE); PROTEIN,URINE 2+ mg/dl (NEGATIVE); UGLUCOSE NEGATIVE (NEGATIVE); UROBILINOGEN,URINE 0.2 EU/dL (0.2)
[2024-09-29 11:38] LABS: BLOOD, URINE 1+ Ery/uL (NEGATIVE)
[2024-09-29 11:39] LABS: ADD URINE CULTURE YES; BACTERIA,URINE 1+ /HPF (None Seen); WBC,URINE TOO NUMEROUS TO COUN /HPF (0-3)
[2024-09-29 13:00] VITALS: BP 176/77; TEMP 99; O2SAT 100
[2024-09-29] MEDS ORDERED: CALCIUM CARBONATE 500 MG TAB.CHEW PO PRN (13:00)
[2024-09-29] MEDS: GABAPENTIN 100 MG CAPSULE PO SCH (13:00)
[2024-09-29] MEDS ORDERED: POLYVINYL ALCOHOL 15 ML BOTTLE EACHEYE PRN (13:00)
[2024-09-29] MEDS: BLOOD SUGAR DIAGNOSTIC 1 EACH STRIP IN SCH (14:16)
[2024-09-29 16:00] VITALS: BP 170/83; TEMP 98.1; O2SAT 99
[2024-09-29] MEDS: POLYETHYLENE GLYCOL 3350 17 GM POWD.PACK PO SCH (17:39)
[2024-09-29] MEDS: CIPROFLOXACIN IV RTU 400 MG in PREMIX 1 EA IV SCH (17:51)
[2024-09-29] MEDS: LATANOPROST EYE DROP 0.005% 2.5 ML BOTTLE EACHEYE SCH (21:54)
[2024-09-29] MEDS: ATORVASTATIN 40 MG TABLET PO SCH (21:54)
[2024-09-30] VITALS (7 sets, daily range): BP systolic 112–161; BP diastolic 67–82; TEMP 97.7–99.3; O2SAT 95–100
[2024-09-30] MEDS: ACETAMINOPHEN 650 MG/SUPP.RECT RC PRN (03:53)
[2024-09-30] MEDS: LEVOTHYROXINE SODIUM 50 MCG TABLET PO SCH (06:55)
[2024-09-30 07:33] LABS: BASOPHILS # (AUTO) 0.1 K/uL (0.0-0.2); BASOPHILS % (AUTO) 1.1 % (0.0-2.0); EOSINOPHILS # (AUTO) 0.3 K/uL (0.0-0.7); EOSINOPHILS % (AUTO) 4.6 % (0.0-6.0); HEMATOCRIT 33 % (33-45); HEMOGLOBIN 10.2 g/dL (11.5-14.8); LYMPHOCYTES # (AUTO) 0.8 K/uL (0.8-4.8); LYMPHOCYTES % (AUTO) 12.5 % (20.0-44.0); MEAN CORPUSCULAR HEMOGLOBIN 28 PG (26.0-33.0); MEAN CORPUSCULAR HGB CONC 31 g/dl (31.0-36.0); MEAN CORPUSCULAR VOLUME 91 fL (82-100); MONOCYTES # (AUTO) 0.7 K/uL (0.1-1.30); MONOCYTES % (AUTO) 11.5 % (2.0-12.0); NEUTROPHILS # (AUTO) 4.5 K/uL (1.8-8.9); NEUTROPHILS % (AUTO) 70.3 % (43.0-81.0); PLATELET COUNT (AUTO) 116 K/uL (150-450); RED BLOOD CELL COUNT(AUTO) 3.69 MIL/uL (4.0-5.2); RED CELL DISTRIBUTION WIDTH 20.6 % (11.5-15.0); WHITE BLOOD COUNT (AUTO) 6.4 K/uL (4.3-11.0)
[2024-09-30 07:43] LABS: CALCIUM, SERUM 8.8 mg/dL (8.5-10.1); POTASSIUM 5.2 mmol/L (3.5-5.1)
[2024-09-30 08:16] LABS: THYROID STIMULATING HORMONE 1.78 uIU/mL (0.358-3.74)
[2024-09-30] MEDS: ASPIRIN EC 81 MG TABLET.DR PO SCH (09:24)
[2024-09-30] MEDS: VIT B CMPLX 3/FA/VIT C/BIOTIN 1 TAB TABLET PO SCH (09:24)
[2024-09-30] MEDS: PANTOPRAZOLE 40 MG VIAL IV SCH (09:24)
[2024-09-30] MEDS: PROSOURCE / PROSTAT (PYXIS) 30 ML UDC PO SCH (09:25)
[2024-10-01] VITALS: BP 136/73; TEMP 97.7; O2SAT 96
[2024-10-01 04:00] VITALS: BP 129/64; TEMP 98.9; O2SAT 97
[2024-10-01 07:29] LABS: BASOPHILS # (AUTO) 0.1 K/uL (0.0-0.2); BASOPHILS % (AUTO) 1.1 % (0.0-2.0); EOSINOPHILS # (AUTO) 0.2 K/uL (0.0-0.7); EOSINOPHILS % (AUTO) 3.2 % (0.0-6.0); HEMATOCRIT 34 % (33-45); HEMOGLOBIN 10.9 g/dL (11.5-14.8); LYMPHOCYTES # (AUTO) 0.6 K/uL (0.8-4.8); LYMPHOCYTES % (AUTO) 9.3 % (20.0-44.0); MEAN CORPUSCULAR HEMOGLOBIN 28 PG (26.0-33.0); MEAN CORPUSCULAR HGB CONC 32 g/dl (31.0-36.0); MEAN CORPUSCULAR VOLUME 89 fL (82-100); MONOCYTES # (AUTO) 0.6 K/uL (0.1-1.30); MONOCYTES % (AUTO) 10.3 % (2.0-12.0); NEUTROPHILS # (AUTO) 4.8 K/uL (1.8-8.9); NEUTROPHILS % (AUTO) 76.1 % (43.0-81.0); PLATELET COUNT (AUTO) 127 K/uL (150-450); RED BLOOD CELL COUNT(AUTO) 3.85 MIL/uL (4.0-5.2); RED CELL DISTRIBUTION WIDTH 20.7 % (11.5-15.0); WHITE BLOOD COUNT (AUTO) 6.3 K/uL (4.3-11.0)
[2024-10-01 08:00] VITALS: BP 134/62; TEMP 98.1; O2SAT 95
[2024-10-01] MEDS ORDERED: LEVOFLOXACIN 500 MG /D5W 100ML 500 MG in PREMIX 1 EA IV SCH (09:00)
[2024-10-01] MEDS: PANTOPRAZOLE 40 MG TABLET.DR PO SCH (09:26)
[2024-10-01 11:01] LABS: ALBUMIN 2.8 g/dL (3.4-5.0); BILIRUBIN,TOTAL 0.5 mg/dL (0.2-1.0); CALCIUM, SERUM 8.4 mg/dL (8.5-10.1); CREATININE 5.8 mg/dL (0.6-1.3); PHOSPHORUS 4.2 mg/dL (2.5-4.9); POTASSIUM 4.1 mmol/L (3.5-5.1); TOTAL PROTEIN, SERUM 6.8 g/dL (6.4-8.2)
[2024-10-01 12:00] VITALS: BP 117/74; TEMP 97.9; O2SAT 99
[2024-10-01] MEDS: CLOPIDOGREL BISULFATE 75 MG TABLET PO SCH (14:10)
[2024-10-01 16:00] VITALS: BP 128/74; TEMP 97.9; O2SAT 99
[2024-10-01 20:00] VITALS: BP 117/68; TEMP 98.6; O2SAT 99
[2024-10-01 22:41] LABS: EOSINOPHILS % (MANUAL) 4 % (0-4); LYMPHOCYTES % (MANUAL) 11 % (16-48); MONOCYTES % (MANUAL) 5 % (0-11.0); NEUTROPHILS % (MANUAL) 80 (42-76)
[2024-10-01 22:44] LABS: PLATELET ESTIMATE ADEQUATE
[2024-10-01 22:46] LABS: ANISOCYTOSIS 1+; HYPOCHROMASIA FEW
[2024-10-02] VITALS: BP 123/79; TEMP 97.7; O2SAT 97
[2024-10-02 04:00] VITALS: BP 144/69; TEMP 98.1; O2SAT 97
[2024-10-02 08:00] VITALS: BP 146/72; TEMP 98.2; O2SAT 0
[2024-10-02] MEDS: MUPIROCIN OINT 2% 22 GM TUBE NS SCH (09:00)
[2024-10-02 12:00] VITALS: BP 137/67; TEMP 98.1; O2SAT 96
[2024-10-02 16:00] VITALS: BP 149/70; TEMP 97.9; O2SAT 95
== END 2024-10-02 16:54 | DRG 64 ==
LOC: ER 08:41 → TELE1 12:25
PROC: 5A1D70Z Performance of Urinary Filtration, Intermittent, Less than 6 Hours Per Day (ICD-10-PCS; principal; 2024-09-30)
DX: I63.212 Cerebral infarction due to unspecified occlusion or stenosis of left vertebral artery (principal); N18.6 End stage renal disease; I13.2 Hypertensive heart and chronic kidney disease with heart failure and with stage 5 chronic kidney disease, or end stage renal disease; I50.42 Chronic combined systolic (congestive) and diastolic (congestive) heart failure; G81.91 Hemiplegia, unspecified affecting right dominant side; N39.0 Urinary tract infection, site not specified; J44.9 Chronic obstructive pulmonary disease, unspecified; Z20.822 Contact with and (suspected) exposure to COVID-19; I25.10 Atherosclerotic heart disease of native coronary artery without angina pectoris; K21.9 Gastro-esophageal reflux disease without esophagitis; Z88.0 Allergy status to penicillin; Z99.2 Dependence on renal dialysis; Z79.899 Other long term (current) drug therapy; Z79.01 Long term (current) use of anticoagulants; Z79.890 Hormone replacement therapy; Z79.82 Long term (current) use of aspirin; R29.715 NIHSS score 15; B96.89 Other specified bacterial agents as the cause of diseases classified elsewhere; D64.9 Anemia, unspecified; E03.9 Hypothyroidism, unspecified; E78.5 Hyperlipidemia, unspecified; F41.9 Anxiety disorder, unspecified; F32.9 Major depressive disorder, single episode, unspecified; M89.8X9 Other specified disorders of bone, unspecified site; G89.4 Chronic pain syndrome; E87.5 Hyperkalemia; E04.2 Nontoxic multinodular goiter; Z87.09 Personal history of other diseases of the respiratory system
CPT/HCPCS: 36415; 70450-TC; 70496-TC; 70498-TC; 70551-TC; 71045-TC; 80048-TC; 80053-TC; 80061-TC; 81001; 82962-TC; 83735-TC; 84100-TC; 84443-TC; 84484-TC; 85025-TC; 85730-TC; 87081-TC; 87086-TC; 87186-TC; 90935-TC; 92507-TC; 92521; 92526; 92611-TC; 93307-TC; 97110-TC; 97112-TC; 97530-TC; 97535-TC; A4216; A4223; G0378; J0744; J2470; J3490; J7030; J7050; Q9967